=== PATIENT | male | born 1985 | race Caucasian/White ===

== ENCOUNTER 2023-06-13 06:40 | Emergency (ER) | payer MEDICAID ==
[~2023-06-13] VITALS: Ht 170.2 cm; Wt 104.0 kg
[2023-06-13 07:28] VITALS: O2SAT 100
[2023-06-13 08:06] LABS: BASOPHILS % 1.1 % (0.0-2.0); EOSINOPHILS % 3.4 % (0.0-5.0); HEMATOCRIT. 46.5 % (42.0-52.0); HEMOGLOBIN. 15.6 g/dL (14.0-18.0); LYMPHOCYTES % 32.5 % (20.0-50.0); MEAN CORPUSCULAR HGB CONC 33.6 g/dL (31.0-37.0); MEAN CORPUSCULAR VOLUME 89.3 fL (80.0-94.0); MEAN PLATELET VOLUME 7.7 fl (7.4-10.4); MONOCYTES % 5.8 % (2.0-8.0); NEUTROPHILS % 57.2 % (40.0-76.0); PLATELET 343 x1000/uL (130-400); RED BLOOD CELL COUNT 5.21 mill/uL (4.7-6.1); RED CELL DISTRIBUTION WIDTH 13.5 % (11.6-14.6); WHITE BLOOD COUNT 6.7 x1000/uL (4.5-11.0)
[2023-06-13 08:24] LABS: CALCIUM 8.7 mg/dL (8.7-10.4); CARBON DIOXIDE 30 mEq/L (21-32); CHLORIDE 103 mEq/L (98-107); CREATININE 0.9 mg/dL (0.6-1.3); GLUCOSE 138 mg/dL (70-105); POTASSIUM 3.2 mEq/L (3.5-5.1); SODIUM 138 mEq/L (136-145); UREA NITROGEN BLOOD 8 mg/dL (9-23)
[2023-06-13] MEDS: POTASSIUM CHLORIDE 20MEQ TABLET SR PO ONE (11:36)
[2023-06-13] MEDS: KETOROLAC 15MG/ML VIAL IM ONE (11:36)
[2023-06-13] MEDS ORDERED: CLIN60SO2 TP (11:49)
[2023-06-13] MEDS ORDERED: NAPR-681 MT (11:49)
[2023-06-13 12:23] VITALS: BP 136/71; PULSE 78; RESP 16; TEMP 98
== END 2023-06-13 12:25 | disposition home or self-care (01) ==
LOC: ER 06:40
DX: L73.2 Hidradenitis suppurativa (principal); I10 Essential (primary) hypertension; Z90.49 Acquired absence of other specified parts of digestive tract
CPT/HCPCS: 80048; 85025; 36415; 96372; 99283; J1885; Z7610